=== PATIENT | female | born 1955 | race Caucasian/White ===

== ENCOUNTER → 2016-11-22 | Outpatient (CLI) | payer MEDICARE, OTHER ==
--- NOTE | 2016-11-22 16:56 | RADRPT ---
PROCEDURE: Whole body bone scan study CLINICAL INDICATION: 61 -year-old patient with breast cancer. TECHNIQUE: Following the intravenous injection of 25.3 mCi of Tc-99m MDP, whole body anterior and po sterior planar images were obtained along with spot views of the chest . COMPARISON: May 16, 2016. FINDINGS: Mildly increased activity is seen in the spine and in both knees, unchanged since the previous study , which is likely related to degenerative process. No definite new abnormal areas of increased activity or asymmetries are visualized in the study and distribution of radionuclide is homogeneous in the skull, spine, rib cages, sternum, pelvis and visu alized portions of the upper and lower extremities. Of incidental note, there is no evidence of mass abnormalities of the kidneys. IMPRESSION: 1. No definite scintigraphic evidence to suggest the presence of skeletal metastases. 2. Unchanged likely degenerative changes of the spine and both knees. RPTAT: HH .Samantha Floyd MD, MD Date Time Electronically viewed and signed by .Samantha Floyd MD, on 11/22/2016 16:55 .L/
--- NOTE | 2016-11-27 18:58 | CONS ---
DATE OF ADMISSION: 11/22/2016 DATE OF CONSULTATION: 11/27/2016 TYPE OF CONSULTATION: Preoperative gastroenterology. Dear Dr. Amado: I thank you very much for this kind referral. HISTORY OF PRESENT ILLNESS: Ms. Cassi Whitehead is a 61-year-old female patient who has been referre d to me for further evaluation of change in the bowel habit with alternating constipation and diarrh ea. There is no past history of colon neoplasm. The patient never had screening colonoscopy. She also complains of upper abdominal pain and chronic heartburn, not responding to therapy with Protoni x. There is no past history of peptic ulcer disease. She has been taking Celebrex for arthritis an d back pain. There is no history of gallstones. She does not have any fever, chills or jaundice. There is no history of liver disease. She is not a hypertensive or diabetic. She does not have any heart disease or lung problem. There is no history of kidney disease. She has got hyperlipidemia. 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 She is status post surgery, radiation and nikita motherapy for breast cancer. She has got anxiety disorder and she is on Xanax and Zoloft. SOCIAL HISTORY: She is a nonsmoker. She does not abuse alcohol. FAMILY HISTORY: Negative for gastrointestinal tract neoplasm. ALLERGIES: THERE IS NO HISTORY OF SIGNIFICANT DRUG ALLERGY. MEDICATIONS: 1. Protonix. 2. Zetia. 3. Atorvastatin. 4. Xanax. 5. Zoloft. 6. Oxycodone. 7. Celebrex. PHYSICAL EXAMINATION: VITAL SIGNS: She is 5 feet 1 inch tall and she weighs 188 pounds. HEART: Examination of the heart reveals normal first and second heart sounds. LUNGS: Clear. ABDOMEN: Soft without any distention. Liver and spleen are not palpable. There are no masses. Th ere is no focal tenderness. Normal bowel sounds are heard. CENTRAL NERVOUS SYSTEM: Does not reveal any focal neurological deficit. IMPRESSION: 1. Change in the bowel habit with constipation and diarrhea. The patient never had screening colon oscopy. 2. Upper abdominal pain and chronic heartburn, not responding to therapy with Protonix. 3. The patient has been taking Celebrex. 4. Hyperlipidemia. 5. Degenerative joint disease of the back and the patient is on oxycodone. 6. Anxiety disorder. She is on Xanax and Zoloft. 7. History of breast cancer for which she has undergone radiation, surgery and chemotherapy. 8. Elevated body mass index. Her BMI is more than 35. She is 5 feet 1 inch tall and she weighs 18 8 pounds. Her body mass index is more than 35. PLAN: 1. Endoscopic examination to rule out peptic ulcer disease and erosive esophagitis. 2. Screening colonoscopy. 3. Because of the obesity with a short thick neck and anxiety disorder, she needs monitored anesthe gracy care for the procedures. 4. The patient was strongly advised to lose weight. 5. Dietary consultation was recommended. 6. Follow up with the primary MD for the management of elevated BMI. The procedures and possible complications are well explained to the patient. The patient understand s and consents to the procedures. I thank you once again. With warmest personal regards, DAKSHA GONZALEZ MD Dictated By: DAKSHA MOSER/BRIDGET Conf#: [id number] DID#: [id number]
== END | disposition home or self-care (01) ==
LOC: NUC 09:16
PROVIDERS: ATTEND Internal Medicine Hematology & Oncology
DX: C50.919 Malignant neoplasm of unspecified site of unspecified female breast (principal)
CPT/HCPCS: 78306

== ENCOUNTER 2017-03-14 06:16 | Day surgery (SDC) | payer MEDICARE, OTHER ==
[~2017-03-14] VITALS: Ht 152.4 cm; Wt 87.1 kg
[2017-03-14 06:59] VITALS: Ht 152.4 cm; Wt 87.1 kg
[2017-03-14] MEDS ORDERED: MECL-77 PO (07:30)
[2017-03-14] MEDS ORDERED: CELE200C PO (07:30)
[2017-03-14] MEDS ORDERED: PANT40TA4 PO (07:30)
[2017-03-14] MEDS ORDERED: OLOP2.5D BOTH EYES (07:30)
[2017-03-14] MEDS ORDERED: OXYC5CAP17 PO (07:30)
[2017-03-14] MEDS ORDERED: ATOR80TA75 PO (07:30)
[2017-03-14] MEDS ORDERED: DONE5TAB7 PO (07:30)
[2017-03-14] MEDS ORDERED: SERT50TA6 PO (07:30)
[2017-03-14] MEDS ORDERED: Vitamin D PO (07:30)
[2017-03-14] MEDS ORDERED: ALPR0.5T6 PO (07:30)
[2017-03-14] MEDS ORDERED: PROPOFOL 20 ML ONE ×2 (07:42→08:26)
[2017-03-14] MEDS ORDERED: LIDOCAINE 2% (SDV) 5 ML INJ ONE (07:42)
[2017-03-14] MEDS ORDERED: MIDAZOLAM 1 MG/ML 2 ML INJ ONE (07:42)
[2017-03-14 07:54] VITALS: BP 152/80; PULSE 61; RESP 14
--- NOTE | 2017-03-14 08:59 | GILP ---
DATE OF PROCEDURE: NAME OF PROCEDURES: 1. Esophagogastroduodenoscopy and biopsy. 2. Colonoscopy with biopsy and polypectomy. SURGEON: Nate Mercado MD PREOPERATIVE DIAGNOSES: 1. Abdominal pain. 2. Chronic heartburn. 3. Screening colonoscopy. POSTOPERATIVE DIAGNOSES: 1. Reflux esophagitis with erosions. 2. Gastritis with erosions. 3. Gastric mucosal biopsies were taken for Helicobacter pylori test. 4. Colonoscopy all the way to the cecum. 5. Sigmoid colon polyp at 15 cm from the anus, removed using the snare and electrocautery. 6. Right colon polyp, removed using the biopsy forceps. 7. Internal hemorrhoids. INDICATION FOR THE PROCEDURE: Ms. Cassi Whitehead is a 61-year-old female patient who had upper abdo artemio pain and chronic heartburn not responding to therapy. The patient also needed screening colon oscopy. The procedures and possible complications were well explained to the patient. The patient understoo d and consented to the procedures. DESCRIPTION OF PROCEDURE: Under the influence of anesthesia the gastroscope was carefully introduce d into the esophagus and under direct vision it was advanced to the stomach and through the pylorus, into the duodenal bulb and descending duodenum. FINDINGS: ESOPHAGUS: The patient had reflux esophagitis with erosions at the lower end. STOMACH: The patient had gastritis with erosions. Gastric mucosal biopsies were taken for H. pylor i test. DUODENUM: Normal. The colonoscope was carefully introduced in the rectum and under direct vision it was advanced all t he way to the cecum. FINDINGS: The patient had a flat polyp in the right colon and it was removed using the biopsy force ps. She had a polyp in the sigmoid colon at 15 cm from the anus and it was removed using the snare and electrocautery. She was noted to have internal hemorrhoids. She tolerated the procedures very well and there was no complication from the procedures. At the en d of the procedures she was awake with stable vital signs and she was discharged home to the care of her family. IMPRESSION: Please see postoperative diagnoses. PLAN: 1. Continue pantoprazole. 2. Add Zantac 300 mg p.o. at bedtime. 3. Await histopathology reports. 4. Next screening colonoscopy in 5 years. Dictated By: NATE MOSER/BRIDGET Conf#: [id number] DID#: [id number]
[2017-03-14 09:05] VITALS: BP 146/86; PULSE 60; RESP 18
[2017-03-14] MEDS ORDERED: ONDANSETRON 4 MG INJ ONE (09:10)
== END 2017-03-14 10:52 | disposition home or self-care (01) ==
LOC: GIL 06:16
PROVIDERS: ATTEND Internal Medicine Gastroenterology
DX: Z12.11 Encounter for screening for malignant neoplasm of colon (principal); D12.5 Benign neoplasm of sigmoid colon; K21.0 Gastro-esophageal reflux disease with esophagitis; K29.60 Other gastritis without bleeding; K64.8 Other hemorrhoids; E78.5 Hyperlipidemia, unspecified; E66.9 Obesity, unspecified; Z68.37 Body mass index [BMI] 37.0-37.9, adult
CPT/HCPCS: 43239; 45380; 87081; 88305; J2250; J2405